=== PATIENT | female | born 1975 | race Caucasian/White ===

== ENCOUNTER 2021-02-02 17:00 | Inpatient (IN) | payer MEDICAID ==
[~2021-02-02] VITALS: Ht 172.7 cm; Wt 142.3 kg
--- NOTE | 2021-02-02 17:10 | NUR ---
RITA FROM [facility] FOR DIVERTICULITIS WITH PERFORATED SMALL BOWEL. PT POSTIONED TO COMFORT IN BED. ATTACHED TO MONITORS. DR. LEIVA TO BEDSIDE FOR EVALUATION. VSS. OLIVERA.
[2021-02-02] MEDS ORDERED: SODIUM CHLORIDE 0.9% 1,000 ML IV SCH (17:30)
[2021-02-02] MEDS ORDERED: ONDANSETRON 2MG/ML, 2ML IVPush ONE (17:30)
[2021-02-02] MEDS ORDERED: ONDANSETRON 2MG/ML, 2ML ONE ×2 (17:30→19:18)
[2021-02-02] MEDS ORDERED: MORPHINE SULFATE 4 MG/ML, 1ML ONE ×2 (17:31→18:25)
[2021-02-02] MEDS: MORPHINE SULFATE 4 MG/ML, 1ML IVPush PRN ×2 (17:35→18:28)
[2021-02-02] MEDS ORDERED: PLEASE ENTER ALLERGIES MC SCH (18:00)
[2021-02-02] MEDS ORDERED: ENOXAPARIN 40 MG/0.4 ML SQ SCH (18:30)
[2021-02-02] MEDS ORDERED: PIPERACILLIN/TAZO 3.375 GM in DEXTROSE 5% 50 ML IVPB SCH (18:30)
[2021-02-02] MEDS ORDERED: MEROPENEM 1 GM in SODIUM CHLORIDE 0.9% 100 ML IV SCH (18:30)
--- NOTE | 2021-02-02 18:35 | NUR ---
yellow med req slip sent to pharmacy for ivg
--- NOTE | 2021-02-02 18:40 | NUR ---
per dr. de la garza no blood cultures before iv abx. pt medicated per emar.
[2021-02-02] MEDS: PIPERACILLIN/TAZO 3.375 GM in DEXTROSE 5% 50 ML IVPB SCH (18:41)
[2021-02-02] MEDS ORDERED: NS + 20MEQ KCL 1,000 ML IV ONE (18:49)
--- NOTE | 2021-02-02 18:55 | NUR ---
BEDSIDE REPORT TO SHAD LAWLER.
--- NOTE | 2021-02-02 18:58 | NUR ---
report from anthony alamo
[2021-02-02] MEDS: ONDANSETRON 2MG/ML, 2ML IVPush PRN (19:20)
[2021-02-02] MEDS: NS + 20MEQ KCL 1,000 ML IV SCH (20:28)
--- NOTE | 2021-02-02 20:28 | NUR ---
REPORT GIVEN TO ACACIA LAWLER
[2021-02-02 21:04] VITALS: BP 126/82
[2021-02-02] MEDS: morphine SULFATE 10 MG/ML, 1ML IVPush PRN ×3 (21:46→22:50)
[2021-02-03 00:47] VITALS: BP 126/82
[2021-02-03] MEDS: PIPERACILLIN/TAZO 3.375 GM in DEXTROSE 5% 50 ML IVPB SCH ×4 (00:53→18:37)
[2021-02-03] MEDS: morphine SULFATE 10 MG/ML, 1ML IVPush PRN ×6 (02:18→19:01)
[2021-02-03] MEDS: ONDANSETRON 2MG/ML, 2ML IVPush PRN ×3 (02:28→16:05)
[2021-02-03] MEDS: NS + 20MEQ KCL 1,000 ML IV SCH ×3 (03:29→20:03)
[2021-02-03 04:55] VITALS: BP 122/81
[2021-02-03 05:36] LABS: ALANINE AMINOTRANSFERASE 21 U/L (12-78); ALBUMIN 2.5 g/dL (3.4-5.0); ANION GAP 7 mmol/L (5-15); CHLORIDE 110 mmol/L (98-107); CREATININE 0.97 mg/dL (0.55-1.02)
[2021-02-03 05:37] LABS: MEAN CORPUSCULAR HEMOGLOBIN 32.4 pg (27.0-34.8); MEAN PLATELET VOLUME 8.8 fL (7.4-10.4); PLATELET COUNT 310 x10^3/uL (130-400); RED BLOOD COUNT 4.38 x10^6/uL (3.82-5.3); RED CELL DISTRIBUTION WIDTH 13.8 % (9.6-15.2)
[2021-02-03 05:38] LABS: ALKALINE PHOSPHATASE 40 U/L (45-117); BILIRUBIN,TOTAL 0.8 mg/dL (0.2-1.0); TOTAL PROTEIN 7.3 g/dL (6.4-8.2)
[2021-02-03 05:59] LABS: BAND#(MANUAL) 3.38 x10^3/uL; BANDS%(MANUAL) 18 % (0-7); LYMPH#(MANUAL) 0.75 x10^3/uL (1-3.4); LYMPHS% (MANUAL) 4 % (22-44); MONOS#(MANUAL) 0.94 x10^3/uL (0.3-2.7); MONOS% (MANUAL) 5 % (2-9); SEG#(MANUAL) 13.72 x10^3/uL (1.8-6.8); SEGS% (MANUAL) 73 % (42-75)
[2021-02-03 06:00] LABS: <PLATELET ESTIMATE> ADEQUATE; <PLT MORPHOLOGY> NORMAL PLT MORPH; <RBC MORPHOLOGY> NORMAL
[2021-02-03 07:14] VITALS: BP 127/85
[2021-02-03 14:06] VITALS: BP 128/79
[2021-02-03] MEDS ORDERED: MAGNESIUM SULFATE PMX 2GM/50ML 50 ML IV ONE (15:00)
[2021-02-03] MEDS: ENOXAPARIN 40 MG/0.4 ML SQ SCH (17:05)
[2021-02-03 18:42] VITALS: BP 134/86
[2021-02-04] MEDS: morphine SULFATE 10 MG/ML, 1ML IVPush PRN ×2 (00:15→06:31)
[2021-02-04] MEDS: ONDANSETRON 2MG/ML, 2ML IVPush PRN ×4 (00:15→18:02)
[2021-02-04] MEDS: PIPERACILLIN/TAZO 3.375 GM in DEXTROSE 5% 50 ML IVPB SCH ×4 (00:25→18:02)
[2021-02-04 02:01] VITALS: BP 145/95
[2021-02-04] MEDS: NS + 20MEQ KCL 1,000 ML IV SCH ×3 (03:37→21:40)
[2021-02-04 05:56] LABS: MEAN CORPUSCULAR HEMOGLOBIN 31.6 pg (27.0-34.8); MEAN CORPUSCULAR HGB CONC 33.3 g/dL (32.4-35.8); MEAN PLATELET VOLUME 8.6 fL (7.4-10.4); PLATELET COUNT 305 x10^3/uL (130-400); RED BLOOD COUNT 4.17 x10^6/uL (3.82-5.3); RED CELL DISTRIBUTION WIDTH 13.7 % (9.6-15.2)
[2021-02-04 06:04] LABS: ALANINE AMINOTRANSFERASE 16 U/L (12-78); ALBUMIN 2.1 g/dL (3.4-5.0); ANION GAP 6 mmol/L (5-15); CALCIUM 9.1 mg/dL (8.5-10.1); CHLORIDE 104 mmol/L (98-107)
[2021-02-04 06:07] LABS: ALKALINE PHOSPHATASE 57 U/L (45-117); BILIRUBIN,TOTAL 0.7 mg/dL (0.2-1.0); TOTAL PROTEIN 7.1 g/dL (6.4-8.2)
[2021-02-04 06:27] LABS: <PLATELET ESTIMATE> ADEQUATE; <PLT MORPHOLOGY> NORMAL PLT MORPH; ANISOCYTOSIS 1+; BAND#(MANUAL) 3.59 x10^3/uL; BANDS%(MANUAL) 15 % (0-7); LYMPH#(MANUAL) 0.48 x10^3/uL (1-3.4); LYMPHS% (MANUAL) 2 % (22-44); MONOS% (MANUAL) 5 % (2-9); SEG#(MANUAL) 18.64 x10^3/uL (1.8-6.8); SEGS% (MANUAL) 78 % (42-75)
[2021-02-04] MEDS: ENOXAPARIN 40 MG/0.4 ML SQ SCH ×2 (06:31→18:02)
[2021-02-04 07:10] VITALS: BP 116/78
[2021-02-04] MEDS: POLYETHYLENE GLYCOL 17 GM PACKET NG SCH (09:40)
[2021-02-04] MEDS: OXYcodone 5 MG/5 ML ORAL.SOL UDC PO PRN ×2 (12:20→18:02)
[2021-02-04 13:42] VITALS: BP 150/98
[2021-02-04 20:07] VITALS: BP 148/92
[2021-02-05] MEDS: OXYcodone 5 MG/5 ML ORAL.SOL UDC PO PRN ×4 (00:16→17:55)
[2021-02-05] MEDS: ONDANSETRON 2MG/ML, 2ML IVPush PRN ×4 (00:16→17:56)
[2021-02-05] MEDS: PIPERACILLIN/TAZO 3.375 GM in DEXTROSE 5% 50 ML IVPB SCH ×4 (00:16→17:57)
[2021-02-05 02:04] VITALS: BP 121/87
[2021-02-05] MEDS: ACETAMINOPHEN 500 MG TABLET PO PRN ×2 (02:26→22:50)
[2021-02-05 05:49] LABS: MEAN CORPUSCULAR HGB CONC 33.5 g/dL (32.4-35.8); MEAN PLATELET VOLUME 8.5 fL (7.4-10.4); PLATELET COUNT 331 x10^3/uL (130-400); RED BLOOD COUNT 4.03 x10^6/uL (3.82-5.3)
[2021-02-05 06:01] LABS: ANION GAP 8 mmol/L (5-15); CALCIUM 9.1 mg/dL (8.5-10.1); CHLORIDE 106 mmol/L (98-107)
[2021-02-05 06:03] LABS: CREATININE 0.62 mg/dL (0.55-1.02)
[2021-02-05] MEDS: ENOXAPARIN 40 MG/0.4 ML SQ SCH ×2 (06:13→17:56)
[2021-02-05 06:22] LABS: BAND#(MANUAL) 1.78 x10^3/uL; BANDS%(MANUAL) 8 % (0-7); LYMPH#(MANUAL) 1.33 x10^3/uL (1-3.4); LYMPHS% (MANUAL) 6 % (22-44); MONOS#(MANUAL) 0.89 x10^3/uL (0.3-2.7); MONOS% (MANUAL) 4 % (2-9); SEGS% (MANUAL) 82 % (42-75)
[2021-02-05 06:23] LABS: <PLATELET ESTIMATE> ADEQUATE; <PLT MORPHOLOGY> NORMAL PLT MORPH; <RBC MORPHOLOGY> NORMAL; PMNS WITH VACUOLES 1+
[2021-02-05 08:03] VITALS: BP 130/87
[2021-02-05] MEDS: POLYETHYLENE GLYCOL 17 GM PACKET NG SCH (08:34)
[2021-02-05] MEDS: NS + 20MEQ KCL 1,000 ML IV SCH (12:04)
[2021-02-05 12:05] VITALS: BP 132/90
[2021-02-05 19:40] VITALS: BP 122/86
[2021-02-06] MEDS: PIPERACILLIN/TAZO 3.375 GM in DEXTROSE 5% 50 ML IVPB SCH ×4 (00:59→22:47)
[2021-02-06] MEDS: OXYcodone 5 MG/5 ML ORAL.SOL UDC PO PRN ×3 (01:14→19:46)
[2021-02-06] MEDS: ONDANSETRON 2MG/ML, 2ML IVPush PRN ×3 (01:14→19:45)
[2021-02-06] MEDS: NS + 20MEQ KCL 1,000 ML IV SCH (01:19)
[2021-02-06 01:31] VITALS: BP 142/95
[2021-02-06 05:37] LABS: MEAN CORPUSCULAR HEMOGLOBIN 31.6 pg (27.0-34.8); MEAN CORPUSCULAR HGB CONC 33.3 g/dL (32.4-35.8); MEAN PLATELET VOLUME 8.1 fL (7.4-10.4); PLATELET COUNT 361 x10^3/uL (130-400); RED BLOOD COUNT 3.86 x10^6/uL (3.82-5.3); RED CELL DISTRIBUTION WIDTH 13.8 % (9.6-15.2)
[2021-02-06 06:06] LABS: ANION GAP 6 mmol/L (5-15); CALCIUM 8.8 mg/dL (8.5-10.1); CHLORIDE 106 mmol/L (98-107); CREATININE 0.52 mg/dL (0.55-1.02)
[2021-02-06 06:14] LABS: <PLATELET ESTIMATE> ADEQUATE; EOS#(MANUAL) 0.19 x10^3/uL (0.0-0.4); EOS% (MANUAL) 1 % (1-7); LYMPH#(MANUAL) 0.75 x10^3/uL (1-3.4); LYMPHS% (MANUAL) 4 % (22-44); MONOS#(MANUAL) 0.56 x10^3/uL (0.3-2.7); MONOS% (MANUAL) 3 % (2-9); POLYCHROMASIA 1+; SEGS% (MANUAL) 92 % (42-75)
[2021-02-06 06:15] LABS: <PLT MORPHOLOGY> NORMAL PLT MORPH
[2021-02-06] MEDS: ENOXAPARIN 40 MG/0.4 ML SQ SCH ×2 (06:51→17:29)
[2021-02-06] MEDS ORDERED: SODIUM CHLORIDE 0.9% 500 ML IV ONE (07:09)
[2021-02-06 08:09] VITALS: BP 132/83
[2021-02-06] MEDS ORDERED: OMNIPAQUE 350 MG/ML, 150 ML BOTTLE ONE (08:10)
[2021-02-06] MEDS ORDERED: AMIODARONE 450 MG in DEXTROSE 5% 241 ML IV PRN ×2 (09:00→15:30)
[2021-02-06] MEDS ORDERED: FILTER 0.22 MICRON IV PRN ×2 (09:00→15:30)
[2021-02-06] MEDS ORDERED: MIDAZOLAM 1 MG/ML, 2ML ONE (09:04)
[2021-02-06] MEDS ORDERED: FENTANYL PF 250 MCG/5ML ONE ×2 (09:05→10:13)
[2021-02-06] MEDS ORDERED: ALBUMIN HUMAN 5% 500 ML ONE (09:10)
[2021-02-06] MEDS ORDERED: PHENYLEPHRINE 10 MG/ML ONE (09:16)
[2021-02-06] MEDS ORDERED: CEFOTETAN 2 GM ONE (09:16)
[2021-02-06] MEDS ORDERED: MAGNESIUM SULFATE 1 GM/2 ML ONE (09:31)
[2021-02-06] MEDS ORDERED: POTASSIUM CHLORIDE 40 MEQ in SODIUM CHLORIDE 0.9% 100 ML IV ONE (10:00)
[2021-02-06] MEDS ORDERED: ROCURONIUM 10MG/ML,5ML ONE ×3 (10:42→11:17)
[2021-02-06] MEDS ORDERED: PROPOFOL 10 MG/ML, 20ML ONE ×2 (10:42→12:46)
[2021-02-06] MEDS ORDERED: DEXAMETHASONE 4 MG/ML, 1ML ONE ×2 (11:17)
[2021-02-06] MEDS ORDERED: ONDANSETRON 2MG/ML, 2ML ONE ×3 (11:17→13:50)
[2021-02-06] MEDS ORDERED: ONDANSETRON 2MG/ML, 2ML IVPush PRN (11:30)
[2021-02-06] MEDS ORDERED: ACETAMINOPHEN 325 MG TABLET PO PRN (11:30)
[2021-02-06] MEDS ORDERED: EPHEDRINE 50 MG/ML, 1ML IVPush PRN (11:30)
[2021-02-06] MEDS ORDERED: HYDROmorphone 1 MG/ML, 1ML INJ IVPush PRN (11:30)
[2021-02-06] MEDS ORDERED: PROMETHAZINE 25 MG/ML, 1ML IVPush PRN (11:30)
[2021-02-06] MEDS ORDERED: hydrALAzine 20 MG/ML, 1ML IV PRN (11:30)
[2021-02-06] MEDS ORDERED: OXYcodone 5 MG/5 ML ORAL.SOL UDC PO PRN (11:30)
[2021-02-06] MEDS ORDERED: LABETALOL 5MG/ML, 20ML IV PRN (11:30)
[2021-02-06] MEDS ORDERED: SUGAMMADEX 200 MG/2 ML IVPush ONE (11:46)
[2021-02-06] MEDS ORDERED: HYDROmorphone 1 MG/ML, 1ML INJ ONE (11:52)
[2021-02-06] MEDS ORDERED: FENTANYL PF 100 MCG/2ML ONE ×3 (12:12→13:09)
[2021-02-06] MEDS ORDERED: KETOROLAC 30 MG/1 ML ONE (12:13)
[2021-02-06] MEDS: FENTANYL PF 100 MCG/2ML IV PRN ×2 (13:20→13:40)
[2021-02-06] MEDS ORDERED: ACETAMINOPHEN 650 MG/20.3 ML UDC ONE (13:50)
[2021-02-06] MEDS ORDERED: OXYcodone 5 MG/5 ML ORAL.SOL UDC ONE (13:50)
[2021-02-06 15:06] VITALS: BP 133/89
[2021-02-06] MEDS: D5%-0.45NACL+KCL 20MEQ 1,000 ML IV SCH (17:29)
[2021-02-06] MEDS: GABAPENTIN 300 MG CAPSULE PO SCH ×2 (17:29→19:45)
[2021-02-06] MEDS ORDERED: NS + 20MEQ KCL 1,000 ML IV SCH (18:30)
[2021-02-06] MEDS ORDERED: CALCIUM CARBONATE 500 MG TAB.CHEW PO ONE (19:30)
[2021-02-06 19:40] VITALS: BP 145/91
[2021-02-06] MEDS: ACETAMINOPHEN 500 MG TABLET PO SCH (19:45)
[2021-02-06] MEDS ORDERED: ALUMINUM/MAG/SIMETHICONE 30 ML UDC PO ONE (22:00)
[2021-02-06] MEDS ORDERED: PANTOPRAZOLE 40 MG IV IVPush ONE (23:00)
[2021-02-07] MEDS: ONDANSETRON 2MG/ML, 2ML IVPush PRN ×4 (02:54→23:30)
[2021-02-07] MEDS: D5%-0.45NACL+KCL 20MEQ 1,000 ML IV SCH ×2 (02:55→18:53)
[2021-02-07] MEDS: OXYcodone 5 MG/5 ML ORAL.SOL UDC PO PRN ×4 (02:55→23:30)
[2021-02-07] MEDS: ACETAMINOPHEN 500 MG TABLET PO SCH ×4 (02:55→20:08)
[2021-02-07 03:01] VITALS: BP 136/91
[2021-02-07 03:24] LABS: BASOPHILS % (AUTO) 0 % (0-1); EOSINOPHILS % (AUTO) 0 % (1-7); LYMPHOCYTES % (AUTO) 6 % (22-44); MEAN CORPUSCULAR HEMOGLOBIN 31.7 pg (27.0-34.8); MEAN CORPUSCULAR HGB CONC 33.5 g/dL (32.4-35.8); MEAN PLATELET VOLUME 7.8 fL (7.4-10.4); MONOCYTES % (AUTO) 5 % (2-9); NEUTROPHILS % (AUTO) 88 % (42-75); PLATELET COUNT 397 x10^3/uL (130-400); RED BLOOD COUNT 3.54 x10^6/uL (3.82-5.3); RED CELL DISTRIBUTION WIDTH 13.8 % (9.6-15.2)
[2021-02-07 03:35] LABS: ALBUMIN 1.9 g/dL (3.4-5.0); ANION GAP 7 mmol/L (5-15); CALCIUM 8.7 mg/dL (8.5-10.1); CHLORIDE 104 mmol/L (98-107); CREATININE 0.61 mg/dL (0.55-1.02)
[2021-02-07] MEDS: PIPERACILLIN/TAZO 3.375 GM in DEXTROSE 5% 50 ML IVPB SCH ×4 (04:32→22:29)
[2021-02-07 08:00] VITALS: BP 155/101
[2021-02-07] MEDS: ENOXAPARIN 40 MG/0.4 ML SQ SCH ×2 (08:00→17:19)
[2021-02-07] MEDS: GABAPENTIN 300 MG CAPSULE PO SCH ×3 (09:00→20:08)
[2021-02-07 12:19] VITALS: BP 151/97
[2021-02-07] MEDS: morphine SULFATE 10 MG/ML, 1ML IVPush PRN ×2 (14:46→20:07)
[2021-02-07 20:03] VITALS: BP 128/85
[2021-02-08] MEDS: ACETAMINOPHEN 500 MG TABLET PO SCH ×4 (02:07→21:32)
[2021-02-08 02:42] VITALS: BP 125/81
[2021-02-08] MEDS: morphine SULFATE 10 MG/ML, 1ML IVPush PRN ×2 (02:53→21:33)
[2021-02-08] MEDS: PIPERACILLIN/TAZO 3.375 GM in DEXTROSE 5% 50 ML IVPB SCH ×4 (04:29→22:48)
[2021-02-08 05:03] LABS: MEAN CORPUSCULAR HGB CONC 33.6 g/dL (32.4-35.8); MEAN PLATELET VOLUME 8.1 fL (7.4-10.4); PLATELET COUNT 414 x10^3/uL (130-400); RED BLOOD COUNT 3.63 x10^6/uL (3.82-5.3); RED CELL DISTRIBUTION WIDTH 13.7 % (9.6-15.2)
[2021-02-08 05:24] LABS: CHLORIDE 103 mmol/L (98-107)
[2021-02-08 05:30] LABS: ALBUMIN 1.7 g/dL (3.4-5.0); ANION GAP 7 mmol/L (5-15); CALCIUM 8.4 mg/dL (8.5-10.1); CREATININE 0.62 mg/dL (0.55-1.02)
[2021-02-08] MEDS: D5%-0.45NACL+KCL 20MEQ 1,000 ML IV SCH (05:42)
[2021-02-08 05:50] LABS: BAND#(MANUAL) 0.14 x10^3/uL; BANDS%(MANUAL) 1 % (0-7); BASOS#(MANUAL) 0.14 x10^3/uL (0-0.1); BASOS% (MANUAL) 1 % (0-1); LYMPH#(MANUAL) 2.47 x10^3/uL (1-3.4); LYMPHS% (MANUAL) 18 % (22-44); METAMYELOCYTES# (MANUAL) 0.55 x10^3/uL (0-0); METAMYELOCYTES% (MANUAL) 4 % (0-1); MONOS#(MANUAL) 0.55 x10^3/uL (0.3-2.7); MONOS% (MANUAL) 4 % (2-9); MYELOCYTES# (MANUAL) 0.14 x10^3/uL (0-0); MYELOCYTES% (MANUAL) 1 % (0-0); SEG#(MANUAL) 9.73 x10^3/uL (1.8-6.8); SEGS% (MANUAL) 71 % (42-75)
[2021-02-08 05:51] LABS: <PLATELET ESTIMATE> INCREASED; <PLT MORPHOLOGY> NORMAL PLT MORPH; POLYCHROMASIA 1+
[2021-02-08] MEDS: OXYcodone 5 MG/5 ML ORAL.SOL UDC PO PRN ×2 (06:10→18:08)
[2021-02-08] MEDS: ENOXAPARIN 40 MG/0.4 ML SQ SCH ×2 (06:10→16:52)
[2021-02-08] MEDS: ONDANSETRON 2MG/ML, 2ML IVPush PRN (06:10)
[2021-02-08 06:48] VITALS: BP 126/84
[2021-02-08] MEDS ORDERED: AMIODARONE 150 MG in DEXTROSE 5% 100 ML IV ONE (08:00)
[2021-02-08] MEDS ORDERED: METOPROLOL 1 MG/ML, 5ML ONE (08:09)
[2021-02-08] MEDS: GABAPENTIN 300 MG CAPSULE PO SCH ×3 (08:11→21:32)
[2021-02-08] MEDS ORDERED: METOPROLOL 1 MG/ML, 5ML IVPush ONE (08:30)
[2021-02-08] MEDS ORDERED: METOPROLOL TARTRATE 50 MG TAB PO SCH (08:30)
[2021-02-08] MEDS ORDERED: LORazepam 1MG TABLET PO ONE (10:00)
[2021-02-08] MEDS ORDERED: DILTIAZEM 125 MG in SODIUM CHLORIDE 0.9% 100 ML IV SCH (12:30)
[2021-02-08 12:33] VITALS: BP 112/77
[2021-02-08] MEDS ORDERED: POTASSIUM CHLORIDE 40 MEQ in SODIUM CHLORIDE 0.9% 500 ML IV ONE (13:00)
[2021-02-08 21:27] VITALS: BP 99/75
[2021-02-08] MEDS: POTASSIUM CHLORIDE 20 MEQ in LACTATED RINGERS 1,000 ML IV SCH (21:42)
[2021-02-09 01:15] VITALS: BP 101/71
[2021-02-09] MEDS: ACETAMINOPHEN 500 MG TABLET PO SCH ×4 (01:23→20:17)
[2021-02-09 03:47] LABS: MEAN CORPUSCULAR HEMOGLOBIN 32.2 pg (27.0-34.8); MEAN CORPUSCULAR HGB CONC 33.9 g/dL (32.4-35.8); MEAN PLATELET VOLUME 7.7 fL (7.4-10.4); PLATELET COUNT 436 x10^3/uL (130-400); RED BLOOD COUNT 3.66 x10^6/uL (3.82-5.3); RED CELL DISTRIBUTION WIDTH 13.7 % (9.6-15.2)
[2021-02-09 03:56] LABS: ALBUMIN 1.7 g/dL (3.4-5.0); ANION GAP 5 mmol/L (5-15); CALCIUM 8.3 mg/dL (8.5-10.1); CHLORIDE 104 mmol/L (98-107); CREATININE 0.61 mg/dL (0.55-1.02)
[2021-02-09 04:32] LABS: BAND#(MANUAL) 0.14 x10^3/uL; BANDS%(MANUAL) 1 % (0-7); LYMPH#(MANUAL) 1.85 x10^3/uL (1-3.4); LYMPHS% (MANUAL) 13 % (22-44); METAMYELOCYTES# (MANUAL) 0.14 x10^3/uL (0-0); METAMYELOCYTES% (MANUAL) 1 % (0-1); MONOS#(MANUAL) 0.28 x10^3/uL (0.3-2.7); MONOS% (MANUAL) 2 % (2-9); MYELOCYTES# (MANUAL) 0.43 x10^3/uL (0-0); MYELOCYTES% (MANUAL) 3 % (0-0); SEG#(MANUAL) 11.36 x10^3/uL (1.8-6.8); SEGS% (MANUAL) 80 % (42-75)
[2021-02-09 04:33] LABS: <PLATELET ESTIMATE> INCREASED; <PLT MORPHOLOGY> NORMAL PLT MORPH; ANISOCYTOSIS 1+; POLYCHROMASIA 1+
[2021-02-09] MEDS: ENOXAPARIN 40 MG/0.4 ML SQ SCH ×2 (05:07→17:27)
[2021-02-09] MEDS: PIPERACILLIN/TAZO 3.375 GM in DEXTROSE 5% 50 ML IVPB SCH ×4 (05:07→22:19)
[2021-02-09] MEDS: OXYcodone 5 MG/5 ML ORAL.SOL UDC PO PRN ×3 (05:16→20:17)
[2021-02-09] MEDS: ONDANSETRON 2MG/ML, 2ML IVPush PRN ×3 (05:17→20:17)
[2021-02-09 07:48] VITALS: BP 113/72
[2021-02-09] MEDS: DILTIAZEM 120 MG CAP.ER.12H PO SCH ×2 (09:23→20:17)
[2021-02-09] MEDS: POTASSIUM CHLORIDE 20 MEQ in LACTATED RINGERS 1,000 ML IV SCH ×2 (09:24→18:34)
[2021-02-09] MEDS: GABAPENTIN 300 MG CAPSULE PO SCH ×3 (09:24→20:17)
[2021-02-09] MEDS ORDERED: DILTIAZEM 125 MG in SODIUM CHLORIDE 0.9% 100 ML IV SCH (12:30)
[2021-02-09 13:05] VITALS: BP 103/67
[2021-02-09] MEDS ORDERED: DILTIAZEM 5 MG/ML, 5ML IVPush PRN (16:00)
[2021-02-09 18:32] VITALS: BP 129/80
[2021-02-09 20:12] VITALS: BP 122/73
[2021-02-10 00:21] VITALS: BP 124/87
[2021-02-10] MEDS: ACETAMINOPHEN 500 MG TABLET PO SCH ×4 (02:13→20:55)
[2021-02-10] MEDS: PIPERACILLIN/TAZO 3.375 GM in DEXTROSE 5% 50 ML IVPB SCH ×4 (04:16→22:53)
[2021-02-10 05:26] LABS: ANION GAP 5 mmol/L (5-15); CALCIUM 8.5 mg/dL (8.5-10.1); CHLORIDE 105 mmol/L (98-107); CREATININE 0.65 mg/dL (0.55-1.02)
[2021-02-10 05:27] LABS: MEAN CORPUSCULAR HEMOGLOBIN 32.3 pg (27.0-34.8); MEAN CORPUSCULAR HGB CONC 34.2 g/dL (32.4-35.8); MEAN PLATELET VOLUME 7.8 fL (7.4-10.4); PLATELET COUNT 411 x10^3/uL (130-400); RED BLOOD COUNT 3.55 x10^6/uL (3.82-5.3); RED CELL DISTRIBUTION WIDTH 13.7 % (9.6-15.2)
[2021-02-10] MEDS: POTASSIUM CHLORIDE 20 MEQ in LACTATED RINGERS 1,000 ML IV SCH ×2 (05:36→15:44)
[2021-02-10] MEDS: ENOXAPARIN 40 MG/0.4 ML SQ SCH ×2 (05:36→17:53)
[2021-02-10] MEDS: ONDANSETRON 2MG/ML, 2ML IVPush PRN ×2 (05:48→18:34)
[2021-02-10] MEDS: OXYcodone 5 MG/5 ML ORAL.SOL UDC PO PRN ×2 (05:48→18:35)
[2021-02-10 06:01] LABS: BAND#(MANUAL) 0.17 x10^3/uL; BANDS%(MANUAL) 1 % (0-7); LYMPH#(MANUAL) 3.46 x10^3/uL (1-3.4); LYMPHS% (MANUAL) 20 % (22-44); METAMYELOCYTES# (MANUAL) 0.35 x10^3/uL (0-0); METAMYELOCYTES% (MANUAL) 2 % (0-1); MONOS#(MANUAL) 0.69 x10^3/uL (0.3-2.7); MONOS% (MANUAL) 4 % (2-9); SEG#(MANUAL) 12.63 x10^3/uL (1.8-6.8); SEGS% (MANUAL) 73 % (42-75)
[2021-02-10 06:02] LABS: <PLATELET ESTIMATE> ADEQUATE; <PLT MORPHOLOGY> NORMAL PLT MORPH; <RBC MORPHOLOGY> NORMAL
[2021-02-10 06:22] VITALS: BP 123/81
[2021-02-10] MEDS: DILTIAZEM 120 MG CAP.ER.12H PO SCH ×2 (08:40→20:55)
[2021-02-10] MEDS: GABAPENTIN 300 MG CAPSULE PO SCH ×3 (08:41→20:55)
[2021-02-10 14:05] VITALS: BP 118/78
[2021-02-10 20:51] VITALS: BP 111/71
[2021-02-11 01:32] VITALS: BP 120/82
[2021-02-11] MEDS: ACETAMINOPHEN 500 MG TABLET PO SCH ×3 (02:21→13:20)
[2021-02-11] MEDS: PIPERACILLIN/TAZO 3.375 GM in DEXTROSE 5% 50 ML IVPB SCH (04:07)
[2021-02-11 05:55] LABS: BASOPHILS % (AUTO) 1 % (0-1); EOSINOPHILS % (AUTO) 3 % (1-7); LYMPHOCYTES % (AUTO) 15 % (22-44); MEAN CORPUSCULAR HEMOGLOBIN 31.8 pg (27.0-34.8); MEAN CORPUSCULAR HGB CONC 33.7 g/dL (32.4-35.8); MEAN PLATELET VOLUME 7.8 fL (7.4-10.4); MONOCYTES % (AUTO) 5 % (2-9); NEUTROPHILS % (AUTO) 76 % (42-75); PLATELET COUNT 432 x10^3/uL (130-400); RED BLOOD COUNT 3.56 x10^6/uL (3.82-5.3); RED CELL DISTRIBUTION WIDTH 13.9 % (9.6-15.2)
[2021-02-11] MEDS: ENOXAPARIN 40 MG/0.4 ML SQ SCH ×2 (06:12→17:31)
[2021-02-11 08:11] VITALS: BP 126/85
[2021-02-11] MEDS: DILTIAZEM 120 MG CAP.ER.12H PO SCH (08:14)
[2021-02-11] MEDS: GABAPENTIN 300 MG CAPSULE PO SCH ×2 (08:14→17:30)
[2021-02-11] MEDS: AMPICILLIN/SULBACTAM 3 GM in SODIUM CHLORIDE 0.9% 100 ML IV SCH ×2 (08:15→13:20)
[2021-02-11] MEDS ORDERED: OXYC1TAB14 PO ×3 (12:12→18:53)
[2021-02-11] MEDS ORDERED: RIVA10TA2 PO ×3 (12:12→18:53)
[2021-02-11] MEDS ORDERED: AMOX1TAB64 PO ×4 (12:12→18:53)
[2021-02-11] MEDS ORDERED: DILT120C11 PO ×3 (12:14→18:53)
[2021-02-11 13:27] VITALS: BP 125/78
[2021-02-11] MEDS: ONDANSETRON 2MG/ML, 2ML IVPush PRN (15:15)
[2021-02-11] MEDS: OXYcodone 5 MG/5 ML ORAL.SOL UDC PO PRN (15:18)
[2021-02-23] MEDS ORDERED: AMOX1TAB64 PO (15:43)
== END 2021-02-11 18:21 | disposition home or self-care (01) | DRG 710 ==
LOC: SUATTDRO 18:05 → ED 18:37 → EDIP 18:49 → 4NE 20:37 → ORIP 02-06 10:15 → 5SO 02-06 10:33
PROVIDERS: ADMIT Internal Medicine; ATTEND Family Medicine
PROC: 0D1N0Z4 Bypass Sigmoid Colon to Cutaneous, Open Approach (ICD-10-PCS; 2021-02-06)
PROC: 0DTN0ZZ Resection of Sigmoid Colon, Open Approach (ICD-10-PCS; principal; 2021-02-06 09:00)
DX: A41.9 Sepsis, unspecified organism (principal); K65.0 Generalized (acute) peritonitis; E87.1 Hypo-osmolality and hyponatremia; E88.09 Other disorders of plasma-protein metabolism, not elsewhere classified; K56.7 Ileus, unspecified; K57.20 Diverticulitis of large intestine with perforation and abscess without bleeding; E86.0 Dehydration; I48.0 Paroxysmal atrial fibrillation; N73.9 Female pelvic inflammatory disease, unspecified; Z20.822 Contact with and (suspected) exposure to COVID-19; E66.9 Obesity, unspecified; K65.1 Peritoneal abscess; E87.6 Hypokalemia; F41.9 Anxiety disorder, unspecified; R73.9 Hyperglycemia, unspecified; D75.1 Secondary polycythemia; B95.2 Enterococcus as the cause of diseases classified elsewhere; Z68.42 Body mass index [BMI] 45.0-49.9, adult; Z80.3 Family history of malignant neoplasm of breast
CPT/HCPCS: 36415; 96374; 96375; 96376; 99285; C8929; 74177; 80048; 80053; 82040; 83735; 84100; 84703; 85025; 86850; 86900; 87015; 87070; 87075; 87077; 87102; 87116; 87186; 87205; 87206; 87635; 88307; 93005; C1729; G0378; J0295; J1100; J1170; J1650; J1885; J2250; J2405; J2543; J2704; J3010; J3475; J3480; P9045; Q9957; Q9967; C1765; C9113; J2270; J2370; J7030; J7040; J7120